=== PATIENT | male | born 1980 | race Caucasian/White ===

== ENCOUNTER 2023-08-22 05:40 | Emergency (ER) | payer OTHER ==
[~2023-08-22] VITALS: Ht 177.8 cm; Wt 102.1 kg
[~2023-08-22 05:40] MED LIST: IRBE150 PO
[2023-08-22] MEDS ORDERED: AMLO5 (06:01)
[2023-08-22 07:00] VITALS: BP 135/90
[2023-08-22] MEDS ORDERED: NAPROXEN250 M1 PO (07:09)
== END 2023-08-22 07:17 | disposition home or self-care (01) ==
LOC: ER 05:40
DX: S83.91XA Sprain of unspecified site of right knee, initial encounter (principal); W19.XXXA Unspecified fall, initial encounter; Z79.899 Other long term (current) drug therapy; I10 Essential (primary) hypertension
CPT/HCPCS: 73562-RT; 99283-25; A9270

== ENCOUNTER 2023-09-30 21:45 | Emergency (ER) | payer OTHER ==
[~2023-09-30] VITALS: Ht 147.3 cm; Wt 99.8 kg
[~2023-09-30 21:45] MED LIST changes: +AMLO5; +NAPROXEN250 M1 PO
[2023-09-30] MEDS ORDERED: ALBU90OI INH (22:15)
[2023-09-30] MEDS ORDERED: MONT10T (22:16)
[2023-10-01] MEDS ORDERED: DELTASONE20 MG PO (04:57)
[2023-10-01 05:15] VITALS: BP 139/90
[2023-10-01] MEDS ORDERED: LORA10ER PO (05:27)
== END 2023-10-01 05:45 | disposition home or self-care (01) ==
LOC: ER 21:45
DX: J45.901 Unspecified asthma with (acute) exacerbation (principal); Z79.899 Other long term (current) drug therapy; I10 Essential (primary) hypertension
CPT/HCPCS: 94640; 94664; 99284-25; J7512

== ENCOUNTER → 2024-04-18 | Outpatient (CLI) | payer OTHER ==
[~2024-04-18] MED LIST changes: +ALBU90OI INH; +ALBUTEROL HFA 90MCG; -AMLO5; +AMLO5 PO; +BUDEPRION XL 300MG; +BUDESONIDE-FO10.2 G2; +CHLO25 PO; +CHLO25B PO; +DELTASONE20 MG PO; +HYDHCL25; +HYDHCL25 PO; +LORA10ER PO; +MELO7.5; +MONT10T; +Naltrexone HCl50 MG PO; +OMEP20ER PO; +ONDA4ODT MM; +OXYC5 PO; +Prinivil10 MG PO; +SPIR25 PO; +SPIRONOLACTONE50 MG PO
[2024-04-18 14:40] LABS: BASOPHILS ABSOLUTE AUTO 0.08 K/mm3 (0.00-0.23); BASOPHILS PERCENT AUTO 1 % (0-2); EOSINOPHILS ABSOLUTE AUTO 0.19 K/mm3 (0.00-0.68); EOSINOPHILS PERCENT AUTO 2 % (0-6); Hematocrit 44.3 % (37.0-53.0); Hemoglobin 15.7 g/dL (13.5-17.5); IMMATURE GRAN ABSOLUTE AUTO 0.03 K/mm3 (0.00-0.10); IMMATURE GRAN PERCENT AUTO 0 % (0-1); LYMPHOCYTES ABSOLUTE AUTO 1.69 K/mm3 (0.84-5.20); LYMPHOCYTES PERCENT AUTO 18 % (21-46); MONOCYTES ABSOLUTE AUTO 0.59 K/mm3 (0.16-1.47); MONOCYTES PERCENT AUTO 6 % (4-13); Mean Corpuscular HGB 32.2 pg (26.0-34.0); Mean Corpuscular HGB Conc 35.4 g/dL (31.5-36.5); Mean Corpuscular Volume 91 fL (80-100); Mean Platelet Volume 9.9 fL (9.1-12.4); NEUTROPHILS ABSOLUTE AUTO 6.95 K/mm3 (1.96-9.15); NEUTROPHILS PERCENT AUTO 73 % (41-73); Platelet Count 344 K/mm3 (150-400); RDW Coefficient Variation 11.6 % (11.7-14.2); RDW Standard Deviation 38.7 fL (35.1-46.3); Red Blood Cell Count 4.88 M/mm3 (4.30-5.90); White Blood Cell Count 9.53 K/mm3 (4.00-11.30)
== END ==
LOC: LAB SHORT 13:06 → LAB 13:06
PROVIDERS: Physician Assistant
DX: R10.13 Epigastric pain (principal)
CPT/HCPCS: 83690; 85025

== ENCOUNTER 2024-10-28 22:21 | Emergency (ER) | payer OTHER ==
[~2024-10-28] VITALS: Ht 177.8 cm; Wt 111.1 kg
[2024-10-28 22:49] VITALS: BP 150/114
[2024-10-28] MEDS ORDERED: Ketorolac Tromethamine 30mg Vial IM ONE (23:40)
[2024-10-28] MEDS ORDERED: HYDROcodone 5-APAP 325 TAB PO ONE (23:40)
== END 2024-10-29 00:03 | disposition home or self-care (01) ==
LOC: ER 22:21
DX: S93.402A Sprain of unspecified ligament of left ankle, initial encounter (principal); S93.401A Sprain of unspecified ligament of right ankle, initial encounter; J45.909 Unspecified asthma, uncomplicated; Z79.899 Other long term (current) drug therapy; W00.0XXA Fall on same level due to ice and snow, initial encounter
CPT/HCPCS: 73610; 96372; 99283-25; A9270; J1885

== ENCOUNTER 2024-12-01 14:18 | Emergency (ER) | payer OTHER ==
[~2024-12-01] VITALS: Ht 177.8 cm; Wt 90.7 kg
[2024-12-01 14:24] VITALS: BP 139/95
== END 2024-12-01 15:56 | disposition home or self-care (01) ==
LOC: ER 14:18
DX: M25.572 Pain in left ankle and joints of left foot (principal); M79.662 Pain in left lower leg; I10 Essential (primary) hypertension; Z79.51 Long term (current) use of inhaled steroids; Z79.899 Other long term (current) drug therapy; Z59.89 Other problems related to housing and economic circumstances
CPT/HCPCS: 93971; 99283-25